=== PATIENT | male | born 1970 | race Caucasian/White ===

== ENCOUNTER 2022-09-28 10:04 | Observation (INO) | payer OTHER, SELFPAY ==
[2022-09-28 10:05] VITALS: BP 133/100; PULSE 119; RESP 16; TEMP 36.4; O2SAT 100; BMI 40.7
--- NOTE | 2022-09-28 10:17 | EDS_ITS ---
HPI HPI - GI History of Present Illness Chief Complaint: Abd Pain Detail of Chief Complaint: Abdominal pain Informant: patient Narrative Narrative: Patient presents to the emergency department complaint of abdominal pain x4 days. Patient states the pain is right upper quadrant. It does not radiate. He had decreased appetite but food does not seem to make it worse. He has had low-grade fevers at home up to 99 5. Patient was seen in urgent care today and referred to the emergency department for concern for cholecystitis. Patient has had no prior abdominal surgeries. He denies urinary symptoms. PFSH PFSH Medical History no medical history Home Medications NK 09/28/22 [History Last Taken Unknown] Allergy/AdvReac Type Severity Reaction Status Date / Time No Known Allergies Allergy Verified 09/28/22 10:06 Surgical History no surgical history Social History Smoking Status: Never smoker ROS ROS ED Review of Systems ROS Unobtainable: other Constitutional Constitutional ED: Reports lethargy; Denies chills, fever(s), sweats or weight loss Eyes Eyes: Denies blurry vision, change in vision or diplopia ENT ENT ED: Denies rhinorrhea or sore throat Cardiovascular Cardiovascular: Denies chest pain, orthopnea or racing heartbeat Respiratory/Chest Respiratory/Chest: Denies cough, dyspnea, dyspnea on exertion, orthopnea or sputum Gastrointestinal Gastrointestinal: Reports abdominal pain; Denies diarrhea, nausea or vomiting Genitourinary Genitourinary ED: Denies dysuria, hematuria or urinary frequency Musculoskeletal Musculoskeletal: Denies arthralgias, back pain, myalgias or neck pain Integumentary Denies abscess, Abrasions or rash Neurologic Neurologic: Denies headache(s) or weakness Psychiatric Psychiatric: Denies anxiety, depression or suicidal thoughts Endocrine Endocrinology: Denies polydipsia, polyphagia or polyuria Hematologic/Lymphatic Hematologic/Lymphatic: Denies easy bleeding, easy bruising or lymphadenopathy Allergic/Immunologic Allergic/Immunologic ED: Denies mouth swelling, tongue swelling or urticaria EXAM Physical Exam Const Vital Signs: 09/28/22 10:05 Temperature 97.6 F L Temperature Source Temporal Pulse Rate 119 H Respiratory Rate 16 Blood Pressure 133/100 H Blood Pressure Mean 111 Pulse Ox 100 Oxygen Delivery Method Room Air Positive well nourished and well developed General Appearance ED: well developed and NAD HEENT Reports TM's clear and moist mucous membranes normocephalic and atraumatic; Negative for trauma or tenderness Tympanic Membrane ED: Yes TM's clear Eyes PERRL and EOMs intact bilaterally General Eye ED: Negative for pale conjunctiva or scleral icterus Neck no lymphadenopathy, supple and no JVD General: Negative for tenderness Chest Wall inspection of chest normal and palpation of chest normal Chest: Negative for tenderness Resp normal respiratory effort and clear to auscultation bilaterally Effort and Inspection: Negative for respiratory distress or pain with movement Auscultation: Negative for rhonchi, wheezes or diminished lung sounds Cardio regular rate, regular rhythm, S1 normal heart sound, S2 normal heart sound and no murmurs Peripheral Pulses: pulses 2+ throughout GI normal to inspection, nondistended, normoactive bowel sounds, soft to palpation, non-distended and no masses GI Narrative: Tenderness to palpation over the right upper quadrant with some guarding. There is no rigidity. No masses palpated. He does have a positive Campa sign. Back/Spine no CVA tenderness and no thoracic nor lumbar tenderness Extremity normal to inspection General Extremety ED: Negative for edema General Extremity: Negative for edema Neuro oriented x3, CN's II-XII intact bilaterally, no sensory deficits noted and gait normal Sensorium / Orientation: awake, alert, oriented to person, oriented to place and oriented to time Motor Exam: strength 5/5 throughout and strength abnormal Psych mental status grossly normal Skin no rashes or lesions noted and no wounds MDM MDM MDM Narrative Medical decision making narrative: Patient presents with right upper quadrant pain x4 days concerning for cho lecystitis based on his history and exam. IV line established on arrival. He did not want anything for pain. CBC with differential obtained showed an elevated white count of 16.7 with a hemoglobin of 19 and hematocrit of 60. Chemistries unremarkable. BUN was 24 creatinine 1.66. LFTs showed an elevated bilirubin of 1.5 however AST ALT and alk phos were normal. Urinalysis was positive for nitrites as well as 10-25 RBCs and urobilinogen of 8. Lactate normal at 1.0. Gallbladder ultrasound obtained showed distended gallbladder with gallstones as well as thickened wall and pericholecystic fluid consistent with acute cholecystitis. Patient started on Zosyn 4.5 g IV. Case will be discussed with general surgeon on-call to evaluate for surgical intervention. Lab Data Attestation: I reviewed the patient's lab results. Labs: Laboratory Results - last 24 hr 09/28/22 09/28/22 09/28/22 10:20 10:30 10:30 WBC 16.7 H RBC 6.81 H Hgb 19.2 H* Hct 60.3 H MCV 88.5 MCH 28.2 MCHC 31.8 L RDW Std Deviation 43.0 RDW Coeff of Evert 14.0 Plt Count 289 MPV 10.1 Immature Gran % (Auto) 0.700 Neut % (Auto) 79.3 H Lymph % (Auto) 8.5 L Arthur % (Auto) 9.0 Eos % (Auto) 2.0 Baso % (Auto) 0.5 Absolute Neuts (auto) 13.3 H Absolute Lymphs (auto) 1.43 Nucleated RBC % 0 Differential Comment SCANNED Diff Path Review May foll Sodium 135 L Potassium 3.6 Chloride 103 Carbon Dioxide 28.0 Anion Gap 4 L BUN 24 H Creatinine 1.66 H Estim Creat Clear Calc 71.55 Est GFR (MDRD) Af Amer 56 L Est GFR (MDRD) Non-Af 46 L BUN/Creatinine Ratio 14.5 Glucose 99 Lactic Acid Calcium 9.0 Total Bilirubin 1.50 H AST 36 ALT 53 Alkaline Phosphatase 89 Total Protein 7.9 Albumin 3.1 L Globulin 4.8 H Albumin/Globulin Ratio 0.6 L Urine Color Nella Urine Clarity Sl. Cloudy Urine pH 6.0 Ur Specific [place] 1.010 Urine Protein 30 H Urine Glucose (UA) Normal Urine Ketones 15 H Urine Occult Blood 150 H Urine Nitrite Positive H Urine Bilirubin 1 H Urine Urobilinogen 8 H Ur Leukocyte Esterase 25 H Urine RBC 10-25 SEEN Urine WBC 0-5 SEEN Ur Squamous Epith Cells 0 SEEN Urine Bacteria 1+ Urine Mucus 1+ 09/28/22 10:30 WBC RBC Hgb Hct MCV MCH MCHC RDW Std Deviation RDW Coeff of Evert Plt Count MPV Immature Gran % (Auto) Neut % (Auto) Lymph % (Auto) Arthur % (Auto) Eos % (Auto) Baso % (Auto) Absolute Neuts (auto) Absolute Lymphs (auto) Nucleated RBC % Differential Comment Diff Path Review Sodium Potassium Chloride Carbon Dioxide Anion Gap BUN Creatinine Estim Creat Clear Calc Est GFR (MDRD) Af Amer Est GFR (MDRD) Non-Af BUN/Creatinine Ratio Glucose Lactic Acid 1.0 Calcium Total Bilirubin AST ALT Alkaline Phosphatase Total Protein Albumin Globulin Albumin/Globulin Ratio Urine Color Urine Clarity Urine pH Ur Specific [place] Urine Protein Urine Glucose (UA) Urine Ketones Urine Occult Blood Urine Nitrite Urine Bilirubin Urine Urobilinogen Ur Leukocyte Esterase Urine RBC Urine WBC Ur Squamous Epith Cells Urine Bacteria Urine Mucus Radiography Diagnostic Testing: Clinical Impression(s) from Imaging Studies Gallbladder Ultrasound 09/28/22 10:37 IMPRESSION: Distended gallbladder with wall thickening, pericholecystic fluid, gallstones, and positive Campa''s sign consistent with acute cholecystitis. There is borderline CBD dilatation as well. Surgical consultation recommended Hepatomegaly diffuse fatty infiltration, no discrete lesion Electronically Signed: Eb Gomez MD at 11:33 EDT , Discharge Plan Triage Chief Complaint: Abd Pain ED Provider: Narda Escobar Dx/Rx/DC Orders Clinical Impression: Acute cholecystitis, Leukocytosis, Abdominal pain Prescriptions: No Action NK Primary Care Provider: Care Physician,No Primary Referrals: Care Physician,No Primary [Primary Care Provider] - Disposition Disposition: Acute Care [facility]
[2022-09-28] MEDS: 0.9% Normal Saline 1,000 ML 125 ML IV (10:35)
--- NOTE | 2022-09-28 10:37 | US_ITS ---
STUDY: ABDOMINAL ULTRASOUND - RIGHT UPPER QUADRANT REASON FOR VISIT: Male, 52 years old abdominal pain TECHNIQUE: Ultrasound evaluation of the right upper quadrant was performed with real-time and static faria-scale imaging. TECHNICAL QUALITY: Limited. Examination limited by bowel gas. COMPARISON: None. FINDINGS: Liver: The liver measures 24.3 cm. There is increased echogenicity consistent with fatty infiltration. The bile ducts are within normal limits. There is hepatic color flow. The direction of portal flow is hepatopetal. There is no demonstrated mass lesion. Gallbladder: Distended gallbladder. The gallbladder wall measures 7 mm. There is a positive sonographic Campa''s sign. There is pericholecystic fluid. There are multiple echogenic structures within the gallbladder, consistent with multiple gallstones. Common Bile Duct (C.B.D.): The common bile duct measures 6 mm. Pancreas: There is nonvisualization of the pancreas. Right Kidney: Normal size of the right kidney. The right kidney measures 13.6 x 6.7 x 6.5 cm. Normal renal cortex. The right cortex measures 2.0 cm. There is no demonstrated renal mass or cyst. There is no right hydronephrosis. US/Gallbladder IMPRESSION: Distended gallbladder with wall thickening, pericholecystic fluid, gallstones, and positive Campa''s sign consistent with acute cholecystitis. There is borderline CBD dilatation as well. Surgical consultation recommended Hepatomegaly diffuse fatty infiltration, no discrete lesion Electronically Signed: Eb Gomez MD at 11:33 EDT ,
[2022-09-28 10:39] LABS: Squamous Epithelial Cells - UA 0 SEEN /hpf (0-5)
[2022-09-28 10:43] LABS: Color, Urine Amber (Yellow); Glucose, Dipstick Normal (Normal); Ketone-Dipstick 15 mg/dl (Negative); Leukocyte Esterase-Dipstick 25 /ul (Negative); Nitrite-Dipstick Positive (Negative); Occult Blood-Urine 150 /ul (Negative); Protein-Dipstick 30 mg/dl (Negative); Urine Clarity Sl. Cloudy (Clear); Urine Urobilinogen 8 mg/dl (Normal)
[2022-09-28 10:44] LABS: Urine Bilirubin Dipstick 1 mg/dL (Negative)
[2022-09-28 10:45] LABS: Absolute Lymphocyte Count 1.43 X10^3/uL (0.83-4.51); Absolute Neutrophil Count 13.3 X10^3/uL (2.0-7.7); Basophil# 0.08 X10^3/uL; Basophil% 0.5 % (0-1); Eosinophil# 0.34 X10^3/uL; Lymphocyte # 1.43 X10^3/ul (0.83-4.51); Lymphocyte % 8.5 % (19-41); Mean Corp Hgb Conc 31.8 g/dL (32-36); Mean Corpuscular Hgb 28.2 pg (27.0-32.0); Mean Corpuscular Volume 88.5 fL (80-94); Mean Platelet Vol. 10.1 fl (6.2-12.0); Monocyte# 1.51 X10^3/uL; NRBC Flagged by Analyzer 0 % (0-5); Neutrophil # 13.26 X10^3/uL (2.7-7.7); Neutrophil % 79.3 % (47-70); POSITIVE DIFFERENTIAL YES; Platelet Count 289 K/mm3 (150-450); Red Blood Count 6.81 M/mm3 (4.6-6.2); White Blood Count 16.7 K/mm3 (4.4-11.0)
[2022-09-28 10:46] LABS: Hematocrit 60.3 % (40-54)
[2022-09-28 10:47] LABS: Hemoglobin 19.2 g/dL (13.0-16.5)
[2022-09-28 10:48] LABS: Differential Indicated SCAN CRITERIA MET
[2022-09-28 10:59] LABS: Red Blood Cells-Urine 10-25 SEEN /hpf (0-5); White Blood Cells 0-5 SEEN /hpf (0-5)
[2022-09-28 11:00] LABS: Bacteria 1+ /hpf (None Seen); Mucous, Urine 1+ /hpf (<or=2+)
[2022-09-28 11:21] LABS: ALB/GLOB Ratio 0.6 RATIO (0.9-2.4); AST(SGOT) 36 U/L (15-37); Alanine Aminotransfer ALT/SGPT 53 U/L (16-61); Albumin, Serum 3.1 g/dL (3.2-5.0); Alkaline Phosphatase 89 U/L (45-117); Anion Gap 4 (5-15); BUN 24 mg/dL (7-18); BUN/Creat Ratio 14.5 RATIO (10-20); Chloride 103 mmol/L (98-107); Creatinine, Serum 1.66 mg/dL (0.70-1.30); EST Glomerular Filtration Rate 46 mL/min (>60); Est Glom Filt Rate - Afr Amer 56 mL/min (>60); Estimated Creatinine Clearance 71.55 ml/min; Globulin 4.8 g/dL (2.2-4.2); Glucose 99 mg/dL (74-106); Potassium 3.6 mmol/L (3.5-5.1); Protein, Total 7.9 g/dL (6.4-8.2); Sodium Level 135 mmol/L (136-145)
[2022-09-28 11:25] LABS: Differential Comment SCANNED
--- NOTE | 2022-09-28 11:49 | HP.PCM.SX_ITS ---
HPI - General General Date of Admission: 09/28/22 HPI Narrative SAMMY BOATENG, is a 52 M who presents due to right upper quadrant pain which started on Tuesday which was a 10 out of 10 for several hours. Did get little better but both still pretty intense on Tuesday and yesterday got better but last night began to get worse again. Patient has not eaten much only 2 bowls of cereal in homemade chicken noodle soup. Patient admits to fevers on Tuesday and Tuesday which did improve yesterday. Patient had 2 prior episodes similarly but not as intense. Patient denies any nausea or vomiting. Patient denies any diarrhea. Patient white blood count 16.7. Ultrasound the gallbladder shows cholelithiasis, thickened gallbladder wall and pericholecystic fluid. [facility] Medical History no medical history Home Medications NK 09/28/22 [History Last Taken Unknown] Allergy/AdvReac Type Severity Reaction Status Date / Time No Known Allergies Allergy Verified 09/28/22 10:06 Surgical History no surgical history Social History Smoking Status: Never smoker ROS Constitutional Constitutional: Reports anorexia and fever(s) Eyes Eyes: Denies loss of central vision ENT HEENT: Denies dysphagia Cardiovascular Cardiovascular: Denies chest pain Respiratory/Chest Respiratory/Chest: Denies cough Gastrointestinal Gastrointestinal: Reports abdominal pain; Denies diarrhea, nausea or vomiting Genitourinary Genitourinary: Denies dysuria Musculoskeletal Musculoskeletal: Denies joint swelling Integumentary Integumentary: Denies rash Neurologic Neurologic: Denies focal weakness Psychiatric Psychiatric: Denies anxiety or depression Endocrine Endocrinology: Denies palpitations Hematologic/Lymphatic Hematologic/Lymphatic: Denies easy bleeding Vital Signs Vital Signs Vital Signs: 09/28/22 10:05 Temperature 97.6 F L Temperature Source Temporal Pulse Rate 119 H Respiratory Rate 16 Blood Pressure 133/100 H Blood Pressure Mean 111 Pulse Ox 100 Oxygen Delivery Method Room Air Weight Weight: 380 lb Body Mass Index (BMI) 40.7 Physical Exam Const alert, oriented x3 and no apparent distress HEENT normocephalic and head/scalp atraumatic Resp normal respiratory effort Cardio regular rate GI soft to palpation; Negative for non-distended Palpation: tender epigastric and RUQ; Negative for guarding Extremity no clubbing, cyanosis or edema Neuro CN's II-XII intact bilaterally Psych mental status grossly normal Results Lab / Micro Data Result Diagrams: 09/28/22 10:30 09/28/22 10:30 Labs: Laboratory Results - last 24 hr 09/28/22 10:20: Urine Color Nella, Urine Clarity Sl. Cloudy, Urine pH 6.0, Ur Specific [place] 1.010, Urine Protein 30 H, Urine Glucose (UA) Normal, Urine Ketones 15 H, Urine Occult Blood 150 H, Urine Nitrite Positive H, Urine Bilirubin 1 H, Urine Urobilinogen 8 H, Ur Leukocyte Esterase 25 H, Urine RBC 10- 25 SEEN, Urine WBC 0-5 SEEN, Ur Squamous Epith Cells 0 SEEN, Urine Bacteria 1+, Urine Mucus 1+ 09/28/22 10:30: WBC 16.7 H, RBC 6.81 H, Hgb 19.2 H*, Hct 60.3 H, MCV 88.5, MCH 28.2, MCHC 31.8 L, RDW Std Deviation 43.0, RDW Coeff of Evert 14.0, Plt Count 289, MPV 10.1, Immature Gran % (Auto) 0.700, Neut % (Auto) 79.3 H, Lymph % (Auto) 8.5 L, [place] % (Auto) 9.0, Eos % (Auto) 2.0, Baso % (Auto) 0.5, Absolute Neuts (auto) 13.3 H, Absolute Lymphs (auto) 1.43, Nucleated RBC % 0, Differential Comment SCANNED, Diff Path Review October foll 09/28/22 10:30: Sodium 135 L, Potassium 3.6, Chloride 103, Carbon Dioxide 28.0, Anion Gap 4 L, BUN 24 H, Creatinine 1.66 H, Estim Creat Clear Calc 71.55, Est GFR (MDRD) Af Amer 56 L, Est GFR (MDRD) Non-Af 46 L, BUN/Creatinine Ratio 14.5, Glucose 99, Calcium 9.0, Total Bilirubin 1.50 H, AST 36, ALT 53, Alkaline Phosphatase 89, Total Protein 7.9, Albumin 3.1 L, Globulin 4.8 H, Albumin/Globulin Ratio 0.6 L 09/28/22 10:30: Lactic Acid 1.0 Radiology Impression Gallbladder Ultrasound 09/28/22 10:37 IMPRESSION: Distended gallbladder with wall thickening, pericholecystic fluid, gallstones, and positive Campa''s sign consistent with acute cholecystitis. There is borderline CBD dilatation as well. Surgical consultation recommended Hepatomegaly diffuse fatty infiltration, no discrete lesion Electronically Signed: Eb Gomez MD at 11:33 EDT , Assessment & Plan Assessment/Plan (1) Acute cholecystitis: PLAN: Plan Did review ultrasound personally. Patient's pain did seem to start several hours after eating which is not typical we will also place patient on a PPI IV. Reviewed the anatomy with the patient and discussed the procedure: laparoscopic cholecystectomy with cholangiograms, possible open. Review risks including but not limited to bleeding, infection, hernia, bile leak, retained gallstones requiring another procedure ERCP- Endoscopic Retrograde Cholangiopancr eatography, injury to another organ (bile ducts, common bile duct, small bowel, etc.) and conversion to an open procedure, possible subtotal with drain placement. All questions were answered. Santa Rose M.D. Pager: [phone] [facility] [address] [place] [address], [address] [place] [address] Office: [phone]
[2022-09-28 12:03] VITALS: BP 139/76; PULSE 78; RESP 16; TEMP 36.4; O2SAT 97
[2022-09-28 12:26] VITALS: BMI 39.6
[2022-09-28 12:30] VITALS: BP 156/107; PULSE 95; RESP 18; TEMP 36.8; O2SAT 98
[2022-09-28] MEDS: 0.9% Normal Saline 1,000 ML 130 ML IV ×3 (12:47→21:33)
[2022-09-28] MEDS: oxyCODONE 5 MG Tablet PO ×2 (12:53→21:34)
[2022-09-28] MEDS: Acetaminophen 325 MG Tablet 650 MG PO ×2 (12:53→21:34)
[2022-09-28 15:30] VITALS: BP 124/85; PULSE 89; RESP 18; TEMP 36.9; O2SAT 96
[2022-09-28 21:22] VITALS: BP 131/84; PULSE 94; RESP 24; TEMP 36.8; O2SAT 94
[2022-09-29] VITALS (10 sets, daily range): BP systolic 126–159; BP diastolic 75–86; PULSE 71–99; RESP 16–20; TEMP 36.2–37; O2SAT 92–100; BMI 39.6
[2022-09-29] MEDS: 0.9% Normal Saline 1,000 ML 130 ML IV (05:19)
[2022-09-29 06:51] LABS: Basophil# 0.07 X10^3/uL; Basophil% 0.8 % (0-1); Eosinophil# 0.42 X10^3/uL; Eosinophils% 4.6 % (0-5); Hematocrit 53.5 % (40-54); Hemoglobin 16.4 g/dL (13.0-16.5); Lymphocyte % 18.7 % (19-41); Mean Corp Hgb Conc 30.7 g/dL (32-36); Mean Corpuscular Hgb 27.3 pg (27.0-32.0); Mean Platelet Vol. 10.2 fl (6.2-12.0); Monocyte# 0.89 X10^3/uL; Monocyte% 9.8 % (0-10); NRBC Flagged by Analyzer 0 % (0-5); Neutrophil # 5.96 X10^3/uL (2.7-7.7); Neutrophil % 65.3 % (47-70); Platelet Count 244 K/mm3 (150-450); RBC Distribution Width CV 13.1 % (11.6-14.6); RBC Distribution Width SD 43.1 fl (35.1-43.9); Red Blood Count 6.01 M/mm3 (4.6-6.2); White Blood Count 9.1 K/mm3 (4.4-11.0)
--- NOTE | 2022-09-29 07:17 | PCM.PN.SRG ---
Subjective Subjective Patient states pains about the same. Denies any nausea or vomiting Objective Data Objective Data Vital Signs: Vital Signs Temp Pulse Resp BP Pulse Ox O2 Del Method 97.3 F L 71 20 H 126/75 H 92 Room Air 09/29/22 05:13 09/29/22 05:13 09/29/22 05:13 09/29/22 05:13 09/29/22 05:13 09/29/22 06:04 Oxygen Delivery Method Room Air Weight: 369 lb 12.784 oz Body Mass Index (BMI) 39.6 Intake & Output: Intake and Output for Last 24 Hours 09/27/22 09/28/22 09/29/22 23:59 23:59 23:59 Intake Total 2850.83 / 2850.83 1092.75 / 1092.75 Balance 2850.83 / 2850.83 1092.75 / 1092.75 Lab / Micro Data Result Diagrams: 09/29/22 05:55 09/29/22 05:55 Labs: Laboratory Results - last 24 hr 09/28/22 10:20: Urine Color Nella, Urine Clarity Sl. Cloudy, Urine pH 6.0, Ur Specific [place] 1.010, Urine Protein 30 H, Urine Glucose (UA) Normal, Urine Ketones 15 H, Urine Occult Blood 150 H, Urine Nitrite Positive H, Urine Bilirubin 1 H, Urine Urobilinogen 8 H, Ur Leukocyte Esterase 25 H, Urine RBC 10-25 SEEN, Urine WBC 0-5 SEEN, Ur Squamous Epith Cells 0 SEEN, Urine Bacteria 1+, Urine Mucus 1+ 09/28/22 10:30: WBC 16.7 H, RBC 6.81 H, Hgb 19.2 H*, Hct 60.3 H, MCV 88.5, MCH 28.2, MCHC 31.8 L, RDW Std Deviation 43.0, RDW Coeff of Evert 14.0, Plt Count 289, MPV 10.1, Immature Gran % (Auto) 0.700, Neut % (Auto) 79.3 H, Lymph % (Auto) 8.5 L, [place] % (Auto) 9.0, Eos % (Auto) 2.0, Baso % (Auto) 0.5, Absolute Neuts (auto) 13.3 H, Absolute Lymphs (auto) 1.43, Nucleated RBC % 0, Differential Comment SCANNED, Diff Path Review May foll 09/28/22 10:30: Sodium 135 L, Potassium 3.6, Chloride 103, Carbon Dioxide 28.0, Anion Gap 4 L, BUN 24 H, Creatinine 1.66 H, Estim Creat Clear Calc 71.55, Est GFR (MDRD) Af Amer 56 L, Est GFR (MDRD) Non-Af 46 L, BUN/Creatinine Ratio 14.5, Glucose 99, Calcium 9.0, Total Bilirubin 1.50 H, AST 36, ALT 53, Alkaline Phosphatase 89, Total Protein 7.9, Albumin 3.1 L, Globulin 4.8 H, Albumin/Globulin Ratio 0.6 L 09/28/22 10:30: Lactic Acid 1.0 09/29/22 05:55: WBC 9.1, RBC 6.01, Hgb 16.4, Hct 53.5, MCV 89.0, MCH 27.3, MCHC 30.7 L, RDW Std Deviation 43.1, RDW Coeff of Evert 13.1, Plt Count 244, MPV 10.2, Immature Gran % (Auto) 0.800, Neut % (Auto) 65.3, Lymph % (Auto) 18.7 L, [place] % (Auto) 9.8, Eos % (Auto) 4.6, Baso % (Auto) 0.8, Absolute Neuts (auto) 6.0, Absolute Lymphs (auto) 1.70, Nucleated RBC % 0 Radiography Diagnostic Testing: Radiology Impression Gallbladder Ultrasound 09/28/22 10:37 IMPRESSION: Distended gallbladder with wall thickening, pericholecystic fluid, gallstones, and positive Campa''s sign consistent with acute cholecystitis. There is borderline CBD dilatation as well. Surgical consultation recommended Hepatomegaly diffuse fatty infiltration, no discrete lesion Electronically Signed: Eb Gomez MD at 11:33 EDT , Physical Exam Const oriented x3 and no apparent distress Resp normal respiratory effort Cardio regular rate GI soft to palpation Palpation: tender epigastric and RUQ Assessment & Plan Assessment/Plan (1) Acute cholecystitis: PLAN: Plan Lap aleks this afternoon Continue IV Zosyn Continue pain control Santa Rose M.D. Pager: [phone] [facility] [address] [place] [address], [address] [place] [address] Office: [phone]
[2022-09-29 07:23] LABS: AST(SGOT) 43 U/L (15-37); Alanine Aminotransfer ALT/SGPT 61 U/L (16-61); Albumin, Serum 2.5 g/dL (3.2-5.0); Alkaline Phosphatase 81 U/L (45-117); Anion Gap 3 (5-15); BUN 15 mg/dL (7-18); BUN/Creat Ratio 11.7 RATIO (10-20); Bilirubin, Direct 0.51 mg/dL (0.00-0.30); Calcium,Total 7.7 mg/dL (8.5-10.1); Chloride 105 mmol/L (98-107); Creatinine, Serum 1.28 mg/dL (0.70-1.30); EST Glomerular Filtration Rate 63 mL/min (>60); Est Glom Filt Rate - Afr Amer 76 mL/min (>60); Globulin 3.5 g/dL (2.2-4.2); Glucose 82 mg/dL (74-106); Potassium 3.5 mmol/L (3.5-5.1); Sodium Level 135 mmol/L (136-145)
--- NOTE | 2022-09-29 13:22 | NURSING ---
Pt off floor for surgery
[2022-09-29] MEDS: Bupivacaine 0.25% 30 ML Vial (14:35)
--- NOTE | 2022-09-29 15:00 | GALL_PTH ---
PATIENT: SAMMY BOATENG LOC: MS3 U#:[id number] AGE/SX: 52/M [place] [facility] [place]: Dr. Santa Rose MD : 1970 BED: 1 DIS: 09/29/2022 SPEC #: [id number] RECD: 09/30/22 10:14 STATUS: DAJUAN REStephanie #: [id number] ARTURO: 09/29/22 15:[address]: Santa Rose DEPT: SURGICAL PATHOLOGY RECD BY: Leeanna Benoit ENTERED: 09/30/22 11:43 SP TYPE: ODILON MCFADDEN DR: No Primary Care Phys Tissues: Gallbladder, NOS Procedures: Surgery Specimen Level III HEADER OPERATION: Laparoscopic cholecystectomy with IOC PRE-OP DIAGNOSIS: Acute cholecystitis TISSUE SUBMITTED: Gallbladder MICROSCOPIC DIAGNOSIS Gallbladder, cholecystectomy: Acute and chronic ulcerated and hemorrhagic cholecystitis, cholelithiasis and focal cholesterolosis. SJ:abigail 10/01/2022 MICROSCOPIC DESCRIPTION Slides are reviewed. GROSS DESCRIPTION Received is one container labeled with the patient's name and designated gallbladder. The specimen consists of a gallbladder measuring 11.0 cm in length and up to 5.5 cm in diameter. The gallbladder is previously opened. The external surface is pink-nam, smooth and glistening for the most part. Focally it is granular, hemorrhagic and contains cautery artifact. The mucosa is congested and hemorrhagic. No bile is noted. Present in the gallbladder and also in the container are multiple mulberry ovoid to round stones measuring in aggregate 4.0 x 3.0 x 2.0 cm and 0.3 to 2.0 cm in greatest dimension. The mucosa is ulcerated, congested and hemorrhagic. Increased amount of subserosal fat is noted. The gallbladder wall measures up to 1.0 cm in thickness. Sewing Department Supervisor sections from the gallbladder and the cystic duct are submitted in three cassettes. / MATT:abigail 09/30/2022 TC:2 CPT: 56030
[2022-09-29] MEDS: Lactated Ringers 1,000 ML 15 ML IV (16:00)
--- NOTE | 2022-09-29 16:50 | PCM.OPRPT ---
Report of Operation Date of Procedure: 09/29/22 Pre-Operative Diagnosis: Acute cholecystitis Post-Operative Diagnosis: Same Surgery/Procedure Performed:: Laparoscopic cholecystectomy Surgeon: Santa Rose labor arbitrator hearing office: [facility] [place] Type of Anesthesia: General/Supplemental Anesthesiologist: Alexandru Nicole Special Medications: Zosyn 3.375 g IV every 8 hours for acute cholecystitis on the floor Specimen's removed: Gallbladder and stones Estimated Blood Loss (mL): 30 cc Description of Procedure: Indications: this is a 52 year-old male who developed abdominal pain/nausea/vomiting and on workup was found to have cholelithiasis, with a normal common bile duct. Laparoscopic cholecystectomy was elected. Description procedure: The patient was placed on operating table in supine position. A timeout was completed verifying correct patient, procedure, site, position and special equipment prior to beginning procedure. General Anesthesia was induced. The abdomen was prepped and draped in usual sterile fashion. An incision was made in the natural skin line above the umbilicus. The fascia was elevated and incised. The peritoneum was elevated and incised. Entry into the peritoneum was confirmed visually and no bowel was noted in the vicinity of the incision. Persaud trocar was placed. The abdomen was insufflated with carbon dioxide to a pressure of 12-15 mmHg. Patient tolerated insufflation well. The laparoscope was then inserted and abdomen inspected. No injuries from initial trocar placement were noted. Additional trochars were then inserted in the following locations 5 mm trocar in the epigastrium and 2 more 5 mm trochars along the right costal margin. The abdomen was inspected no abnormalities were found. The table is placed in reverse Trendelenburg position with the right side up. Inflamed omentum was pulled off the gallbladder with gentle traction gallbladder was noted to be tense and inflamed, thick-walled. Aspiration needle was used to decompress the gallbladder. The dome of the gallbladder was grasped with atraumatic grasper passed through the lateral port and retracted over the dome of the liver. Infundibulum was then grasped with atraumatic grasper through the midclavicular port and retracted to the right lower quadrant. This maneuver exposed Calot's triangle. The peritoneum overlying the gallbladder infundibulum was then incised and cystic duct and artery identified and circumferentially dissected. Due to the short cystic duct and thick wall cholangiograms were not attempted. The cystic duct and artery were then doubly clipped and divided close to the gallbladder. The gallbladder then dissected from its peritoneal attachments by electrocautery. Hemostasis was checked and the gallbladder and contained stones were removed using the endoscopic retrieval bag through the umbilical port which required enlargement due to stones/thick-walled gallbladder. The gallbladder is passed off table as specimen. The gallbladder fossa was irrigated with saline and hemostasis obtained using [place]. There is no evidence of bleeding from the gallbladder fossa or cystic artery leakage of bile from the cystic duct stump. Secondary trochars removed under direct vision. No bleeding was noted the trocar sites. The laparoscope was withdrawn and umbilical trocar removed. The abdomen was allowed to collapse. The fascia of the 12 mm trocar was closed with 3 [id number] 0 Vicryl suture. The skin was closed with sutures of 4-0 Monocryl and Steri-Strips. The patient was extubated. The patient tolerated procedure well and was taken to the postanesthesia care unit in stable condition. Complications none
--- NOTE | 2022-09-29 16:54 | DCINST_ITS ---
Discharge Instructions Diet Discharge Diet: Light diet - advance as tolerated Activity Discharge Activity: May Not Drive (while taking narcotic pain medications.) May shower in (days): 1 Lifting Restrictions: no lifting >20 lbs x 2 wks, no strenuous exercise for 4 wks Dressing / Incision Call your doctor if your incision/area has: Continuous Slow Oozing, Sudden Increased Bleeding, Increased Pain/ Swelling, Increased Redness, Foul Smelling Discharge and Swelling at the incision site Call your doctor if you observe: Fever of 101 or Higher Remove Dressing in: 2 days Cleanse incision/area with: Soap & Water Additional Dressing/Incision Instructions:: Steri-Strips will fall off in 7 to 10 days, if they do not fall off okay to remove after 10 days. Follow Up Care Please Follow Up With: Santa Rose MD When: Call the office for a follow-up appointment 2 weeks; after 5 PM and on the weekends call [phone] with any concerns. Test Results: Test results from this visit will be discussed in further detail at your follow- up appointment, if applicable. Discharge Plan Admission Admit Date/Time: 09/28/22 12:17 Attending Provider: Santa Rose Primary Care Provider: Care Physician,Yenni Primary Discharge Orders/Prescriptions Prescriptions: New oxycodone-acetaminophen 5-325 mg tablet 1 - 2 tab PO Q6H PRN (Reason: pain) 3 Days Qty: 14 0RF amoxicillin-pot clavulanate 875-125 mg tablet 1 tab PO Q12H Qty: 4 0RF Referrals / Follow Up: Care Physician,Yenni Primary [Primary Care Provider] - Disposition Disposition (needs filled in before D/C Order can be placed): Home, Self Care
--- NOTE | 2022-09-29 21:35 | NURSING ---
talked with pt about not exercising for 6 weeks after surgery.
[2022-09-30 13:19] LABS: Pathologist Review Reviewed
== END 2022-09-29 21:38 | disposition home or self-care (01) ==
LOC: ED 11:41 → MS3 12:25
PROVIDERS: Admitting Provider Surgery; Emergency Provider Emergency Medicine; Visit Provider Surgery
PROC: (CPT 47610; principal; 2022-09-29 14:40)
DX: K80.12 Calculus of gallbladder with acute and chronic cholecystitis without obstruction (principal)
CPT/HCPCS: 47562; 00790; 99284; 36415; 76705; 80048; 80053; 80076; 81001; 83605; 85025; 87086; 88304; 93005; 94668; 96361; 96365; 96366; 96367; 97802; 99221; J7030; J7050; J7120; A4216; G0378

== ENCOUNTER 2023-01-13 10:47 | Day surgery (SDC) | payer OTHER, SELFPAY ==
--- NOTE | 2023-01-13 11:03 | PCM.HP.BLA ---
History and Physical Date of Admission: 01/13/23 Date of Service: 12/31/22 MR#: [id number] Acct: [id number] Name: SAMMY BOATENG Rep #: [id number] : 1970 Provider: Dr. Santa Rose MD Age/Sex: 52/M Location: [facility] Status: Signed Intake Vital Signs 09/30/2307:00 Height 6 ft 9 in Intake Visit Reasons: HERNIA SURGERY F/U Chief Complaint: gallbladder f/u Allergies No Known Allergies Allergy (Verified 12/31/22 10:14) [facility] Surgical History (Updated 12/31/22 @ 10:[address] Santa Rose MD) H/O discectomy History of orthopedic surgery S/P laparoscopic cholecystectomy Social History Smoking Status: Never smoker HPI HPI HPI: 52-year-old male presents due to umbilical hernia. Patient did have a recent laparoscopic cholecystectomy in September 2022. Patient states that on Tuesday noticed some nausea and discomfort at his umbilicus patient did feel some squishy material and was able to reduce it and his discomfort and nausea improved. Patient otherwise tolerating diet and having bowel function. Exam Const General: cooperative, healthy appearing, comfortable and no acute distress HENMT Head: normocephalic and atraumatic Neck Neck: supple Resp Effort & Inspection: normal respiratory effort Cardio Rate: regular rate GI Inspection: non-distended Palpation: soft, hernia umbilical (About 1 cm reducible) and nontender Other: Patient supraumbilical incision well-healed no hernia appreciated on exam at this site Skin General: no rashes or lesions noted Neuro General: CN's II-XI intact bilaterally Extrem General: normal to inspection Psych Mental Status: mental status grossly normal Attitude: cooperative Assessment and Plan Assessment and Plan (1) Umbilical hernia: Status: Acute Plan Plan to do an umbilical hernia repair with mesh. Reviewed the procedure with the patient including the risks, including but not limited to infection, bleeding, injury to the small bowel, and recurrence. Did also discussed with patient he would be on lifting restrictions initially after surgery to help prevent recurrence. All questions were answered. Patient is aware if he does have increased pain at the umbilicus and unable to reduce recommend going to the ER?prior to surgery. Patient is agreeable plan. Santa Rose M.D. Pager: [phone] [facility] [address] [place] [address], [facility], [address] [place] [address] Office: [phone] Coding Level of Care Code Off vis,est,level 3 Diagnoses Umbilical hernia K42.9 12/31/22 1040 <Electronically signed by Santa Rose MD> Date Santa Rose MD
[2023-01-13] MEDS: Lactated Ringers 1,000 ML 15 ML IV (11:24)
[2023-01-13 11:25] VITALS: BP 156/95; PULSE 72; RESP 17; TEMP 36.9; O2SAT 99; BMI 39.9
--- NOTE | 2023-01-13 13:40 | PCM.OPRPT ---
Report of Operation Date of Procedure: 01/13/23 Pre-Operative Diagnosis: Umbilical hernia, reducible Post-Operative Diagnosis: Same Surgery/Procedure Performed:: Umbilical hernia pair with mesh Surgeon: Santa Rose mail forwarding system markup clerk: Natalie Fields Type of Anesthesia: General/Supplemental Anesthesiologist: Alexandru Nicole Special Medications: Ancef 3 g IV x1 Specimen's removed: None Estimated Blood Loss (mL): < 10 cc Description of Procedure: Patient was brought into the room placed supine on the operating table. Correct patient, procedure, site, positioning, special, was verified prior to procedure. General anesthesia was induced. The abdomen was prepped draped in usual sterile fashion. A curvilinear incision was made above the umbilicus with a 15 blade scalpel. This was deepened with electrocautery. A hemostat was used to go around the stalk of the umbilicus and Metzenbaum scissors was used to carefully divide the hernia sac from the skin of the umbilicus. The fascia around the hernia defect was cleared and the hernia defect measured 2 cm x [address] hernia patch 6.4 cm was selected. This was secured laterally at its tails with 1 Prolene horizontal mattress suture. The hernia defect was closed with a [id number] 1 Prolene. The wound was irrigated with saline. Hemostasis was assured. The skin of the umbilicus was secured to the fascia using 3-0 Vicryl suture interrupted. The incision was closed with 3-0 Vicryl subdermal interrupted sutures and the skin was closed with interrupted 4-0 Monocryl sutures. Steri-Strips and Tegaderm and OpSite were placed over the incision once sterile cotton balls were placed in the umbilicus. Patient was extubated. Patient tolerated procedure well and was taken to the postanesthesia care unit in stable condition. Grafts/Implants Used: Ventralex ST hernia patch 6.4 cm-- Lot [id number] space ref [id number] Complications none
--- NOTE | 2023-01-13 13:43 | DCINST_ITS ---
Discharge Instructions Diet Discharge Diet: Light diet - advance as tolerated Activity May shower in (days): 5 (Keep umbilical dressing clean dry and intact for 5 days. Okay to tape off with a Ziploc bag to shower. Or lower shower and upper sponge bath.) Lifting Restrictions: NO lifting >30 lbs x 2 wks, no strenuous exercise for 4 wks Additional Activity Instructions:: - Dressing / Incision Call your doctor if your incision/area has: Continuous Slow Oozing, Sudden Increased Bleeding, Increased Pain/ Swelling, Increased Redness, Foul Smelling Discharge and Swelling at the incision site Call your doctor if you observe: Fever of 101 or Higher Remove Dressing in: 5 days (After 5 days okay to remove surgical dressing. Place cotton ball or rolled up gauze in bellybutton and retape daily for 2 more days.) Cleanse incision/area with: Do not get Incision Wet (for 5 days) Additional Dressing/Incision Instructions:: Steri-Strips will fall off in 7 to 10 days, if they do not fall off okay to remove after 10 days. Follow Up Care Please Follow Up With: Santa Rose MD When: Call the office for a follow-up appointment 2 weeks; after 5 PM and on the weekends call [phone] with any concerns. Test Results: Test results from this visit will be discussed in further detail at your follow- up appointment, if applicable. Discharge Plan Admission Attending Provider: Santa Rose Primary Care Provider: Yenni Will Primary Discharge Orders/Prescriptions Prescriptions: New oxycodone-acetaminophen 5-325 mg tablet 1 - 2 tab PO Q6H PRN (Reason: pain) 3 Days Qty: 10 0RF Referrals / Follow Up: Care Physician,Yenni Primary [Primary Care Provider] - Disposition Disposition (needs filled in before D/C Order can be placed): Home, Self Care
[2023-01-13] MEDS: Bupivacaine Mpf 0.5% 30 ML VIAL (13:53)
[2023-01-13 14:08] VITALS: BP 146/95; BP 156/95; PULSE 73; RESP 16; TEMP 36.3; O2SAT 93
[2023-01-13 14:15] VITALS: BP 144/95; BP 156/95; PULSE 71; RESP 16; O2SAT 93
[2023-01-13 14:30] VITALS: BP 142/84; BP 156/95; PULSE 68; RESP 16; O2SAT 96
[2023-01-13 14:35] VITALS: BP 141/90; BP 156/95; PULSE 64; RESP 16; TEMP 36.8; O2SAT 100
[2023-01-13 15:32] VITALS: BP 156/95
== END 2023-01-13 15:34 | disposition home or self-care (01) ==
LOC: SDC 10:48 → AC 10:50
PROVIDERS: Referring Provider Surgery; Visit Provider Surgery
PROC: (CPT 49593; principal; 2023-01-13 12:10)
DX: K42.9 Umbilical hernia without obstruction or gangrene (principal)
CPT/HCPCS: 49593; 00830; C1781; J7120; J2405

== ENCOUNTER 2023-10-11 10:07 | Emergency (ER) | payer OTHER, SELFPAY ==
[2023-10-11 10:08] VITALS: BP 211/67; PULSE 89; RESP 18; TEMP 36.4; O2SAT 99; BMI 41.2
[2023-10-11 11:11] VITALS: BP 169/118; PULSE 80; RESP 14; O2SAT 100
--- NOTE | 2023-10-11 11:19 | EKG12_ITS ---
Test Reason : CHEST PAIN Blood Pressure : / mmHG Vent. Rate : 090 BPM Atrial Rate : 090 BPM P-R Int : 144 ms QRS Dur : 090 ms QT Int : 362 ms P-R-T Axes : 022 008 023 degrees QTc Int : 442 ms Normal sinus rhythm Normal ECG Confirmed by LEBRON HERNANDES, ALEJANDRA ([id number]), visual effects editor JENNY SHEA ([id number]) on 10/17/2023 1:33:53 PM Referred By: Confirmed By:TOM DIANA MD
--- NOTE | 2023-10-11 11:20 | ED.VIS.CHEST ---
HPI History of Present Illness Chief Complaint: Chest Pain Informant: patient Narrative Narrative: 53-year-old male presenting to the emergency department chief complaint of palpitations. Patient states that over the past 2-1/2 weeks he has felt his heart beating funny. He states is not all the time tends to come and go sometimes lasting seconds sometimes minutes sometimes slightly longer. He states he has felt this before during periods of anxiety like when he was taking his mother to get testing before she passed. He states that he has garcia sensations while he has been here to the department. He has some episodes while were talking and is having PVCs on the monitor. The max 15 is 11 and 1 minute. Sometimes he will go minutes without any. No chest pain involvement. No dyspnea. He lifts heavy weights 3 times a week. He notes that his mother in her 70s from complications related to surgery and CHF. His father in his 40s possibly related to lifestyle of heavy smoking and drinking. He denies any change in his ability to lift weights. [facility] Medical History History of stress test Non-smoker Wears glasses Home Medications NK 10/11/23 [History Last Taken Unknown] Allergy/AdvReac Type Severity Reaction Status Date / Time No Known Allergies Allergy Verified 10/11/23 10:08 Surgical History H/O discectomy History of back surgery History of hand surgery History of knee surgery History of neck surgery History of orthopedic surgery History of shoulder surgery S/P laparoscopic cholecystectomy Social History Smoking Status: Never smoker ROS ROS ED Constitutional Constitutional ED: Denies chills, fever(s) or weight loss Eyes Eyes: Denies change in vision or diplopia ENT ENT ED: Denies ear pain, rhinorrhea or sore throat Cardiovascular Cardiovascular: Reports as per HPI and palpitations; Denies chest pain, orthopnea or racing heartbeat Respiratory/Chest Respiratory/Chest: Denies cough, dyspnea or orthopnea Gastrointestinal Gastrointestinal: Denies abdominal pain, diarrhea, nausea or vomiting Genitourinary Genitourinary ED: Denies dysuria, hematuria or urinary frequency Musculoskeletal Musculoskeletal: Denies arthralgias or myalgias Integumentary Denies abscess or rash Neurologic Neurologic: Denies headache(s) or weakness Psychiatric Psychiatric: Denies anxiety, depression, suicidal ideation or suicidal thoughts Endocrine Endocrinology: Denies polydipsia, polyphagia or polyuria Allergic/Immunologic Allergic/Immunologic ED: Denies mouth swelling, tongue swelling or urticaria EXAM Physical Exam Const Vital Signs: 10/11/23 10:08 10/11/23 11:11 10/11/23 12:00 Temperature 97.6 F L Temperature Source Temporal Pulse Rate 89 80 80 Respiratory Rate 18 14 16 Blood Pressure 211/67 H 169/118 H 149/89 H Blood Pressure Mean 115 135 109 Pulse Ox 99 100 96 Oxygen Delivery Method Room Air Room Air Room Air 10/11/23 12:36 Temperature 98.2 F Temperature Source Pulse Rate 80 Respiratory Rate 14 Blood Pressure 152/78 H Blood Pressure Mean 102 Pulse Ox 100 Oxygen Delivery Method Positive well nourished and well developed General Appearance ED: well developed HEENT Reports normocephalic, head/scalp atraumatic and moist mucous membranes Eyes PERRL and EOMs intact bilaterally Neck no lymphadenopathy, supple and no JVD Resp normal respiratory effort and clear to auscultation bilaterally Cardio regular rate, regular rhythm and no murmurs GI normal to inspection, nondistended, normoactive bowel sounds and non-tender Palpation: soft Back/Spine no CVA tenderness and normal ROM Extremity normal to inspection General Extremety ED: Negative for edema General Extremity: Negative for edema Neuro oriented x3 and CN's II-XII intact bilaterally Sensorium / Orientation: alert Motor Exam: strength 5/5 throughout Psych mental status grossly normal Mood & Affect: Negative for depressed or tearful Skin no rashes or lesions noted and no wounds MDM MDM MDM Narrative Medical decision making narrative: EKG is a normal sinus rhythm with no significant change from prior. CBC normal. BMP shows normal sodium and potassium. Creatinine 1.33 glucose 100 magnesium 2.3 troponin 1 high-sensitivity is 8 TSH normal 2.45. My independent interpretation of the chest x-ray is normal mediastinal silhouette. Patient continues to be in a sinus rhythm with occasional bouts of PVCs. At this point patient will be discharged home. Based on the patient's history and how active he is I am not sure that we need to try to give him any beta-tarah at this time. Continue to monitor his blood pressure and he may need treatment for this as an outpatient. I will refer him to cardiology after discussing follow-up with him. History & Record Review Discussion w/independent historian: Patient Lab Data Attestation: I reviewed the patient's lab results. Labs: Laboratory Results - last 24 hr 10/11/23 10:40 WBC 7.2 RBC 5.82 Hgb 16.1 Hct 50.0 MCV 85.9 MCH 27.7 MCHC 32.2 RDW Std Deviation 39.1 RDW Coeff of Evert 12.6 Plt Count 299 MPV 10.2 Immature Gran % (Auto) 0.300 Neut % (Auto) 66.0 Lymph % (Auto) 23.8 [place] % (Auto) 7.0 Eos % (Auto) 2.2 Baso % (Auto) 0.7 Absolute Neuts (auto) 4.8 Absolute Lymphs (auto) 1.72 Nucleated RBC % 0 Sodium 139 Potassium 3.7 Chloride 109 H Carbon Dioxide 27.0 Anion Gap 3 L BUN 22 H Creatinine 1.33 H Estim Creat Clear Calc 115.70 Est GFR (MDRD) Af Amer 72 Est GFR (MDRD) Non-Af 60 BUN/Creatinine Ratio 16.5 Glucose 100 Calcium 9.1 Magnesium 2.3 Troponin I High Sens 8 TSH 2.45 Radiography Diagnostic Testing: Clinical Impression(s) from Imaging Studies Chest X-Ray 10/11/23 11:25 IMPRESSION: Normal x-ray examination of the chest. Electronically Signed: Carlos Dominguez MD at 12:11 EDT , EKG Initial EKG: Attestation: I personally reviewed and interpreted this EKG as follows: Interpretation: Sinus Rhythm Comments: Normal sinus rhythm ventricular rate of 90 bpm EKG comparison from 29 September 2022 show no significant changes. Prior EKG tracings: available for review Prior: Unchanged Discharge Plan Triage Chief Complaint: Chest Pain ED Provider: Scar Walls Dx/Rx/DC Orders Clinical Impression: Heart palpitations, Frequent PVCs Instructions: PVCs Prescriptions: No Action NK Primary Care Provider: Care Physician,No Primary Referrals: Linda Atkinson MD [Med Staff - Active Staff] - As soon as possible Care Physician,No Primary [Primary Care Provider] - Disposition Disposition: Home, Self Care Discharge Date/Time: 10/11/23 12:37
--- NOTE | 2023-10-11 11:25 | RAD_ITS ---
STUDY: X-RAY CHEST REASON FOR EXAM: Male, 53 years old. Palpitations TECHNIQUE: Single AP portable view of the chest. COMPARISON: None. FINDINGS: EKG electrodes are seen. The lungs are clear and expanded. There is no demonstrated pleural abnormality. Normal size heart. Normal mediastinum and martha. Normal visualized pulmonary arteries. Normal visualized aortic arch and descending thoracic aorta. There are degenerative changes of the visualized thoracic spine. Normal visualized ribs, clavicles, and shoulders. There is no demonstrated abnormality of the visualized soft tissue structures of the upper abdomen. RAD/Chest 1 View (Portable) IMPRESSION: Normal x-ray examination of the chest. Electronically Signed: Carlos Dominguez MD at 12:11 EDT ,
[2023-10-11 11:32] LABS: Absolute Lymphocyte Count 1.72 X10^3/uL (0.83-4.51); Absolute Neutrophil Count 4.8 X10^3/uL (2.0-7.7); Basophil# 0.05 X10^3/uL; Basophil% 0.7 % (0-1); Eosinophil# 0.16 X10^3/uL; Eosinophils% 2.2 % (0-5); Hemoglobin 16.1 g/dL (13.0-16.5); Lymphocyte # 1.72 X10^3/ul (0.83-4.51); Lymphocyte % 23.8 % (19-41); Mean Corp Hgb Conc 32.2 g/dL (32-36); Mean Corpuscular Hgb 27.7 pg (27.0-32.0); Mean Corpuscular Volume 85.9 fL (80-94); Mean Platelet Vol. 10.2 fl (6.2-12.0); Monocyte# 0.51 X10^3/uL; NRBC Flagged by Analyzer 0 % (0-5); Neutrophil # 4.78 X10^3/uL (2.7-7.7); Platelet Count 299 K/mm3 (150-450); RBC Distribution Width CV 12.6 % (11.6-14.6); RBC Distribution Width SD 39.1 fl (35.1-43.9); Red Blood Count 5.82 M/mm3 (4.6-6.2); White Blood Count 7.2 K/mm3 (4.4-11.0)
[2023-10-11 11:54] LABS: Anion Gap 3 (5-15); BUN 22 mg/dL (7-18); BUN/Creat Ratio 16.5 RATIO (10-20); Calcium,Total 9.1 mg/dL (8.5-10.1); Chloride 109 mmol/L (98-107); Creatinine, Serum 1.33 mg/dL (0.70-1.30); EST Glomerular Filtration Rate 60 mL/min (>60); Est Glom Filt Rate - Afr Amer 72 mL/min (>60); Glucose 100 mg/dL (74-106); Magnesium 2.3 mg/dL (1.6-2.6); Potassium 3.7 mmol/L (3.5-5.1); Sodium Level 139 mmol/L (136-145); Thyroid Stim Hormone (TSH) 2.45 uIU/mL (0.358-3.74); Troponin-I HS 8 pg/mL (3.0-78.0)
[2023-10-11 12:00] VITALS: BP 149/89; PULSE 80; RESP 16; O2SAT 96
[2023-10-11 12:36] VITALS: BP 152/78; PULSE 80; RESP 14; TEMP 36.8; O2SAT 100
== END 2023-10-11 12:37 | disposition home or self-care (01) ==
PROVIDERS: Emergency Provider Emergency Medicine; Visit Provider Emergency Medicine
DX: R00.2 Palpitations (principal); I49.3 Ventricular premature depolarization; Z90.49 Acquired absence of other specified parts of digestive tract
CPT/HCPCS: 71045; 80048; 83735; 84443; 84484; 85025; 93005; 99284

== ENCOUNTER 2023-12-19 11:53 | Outpatient (CLI) | payer OTHER, SELFPAY ==
--- NOTE | 2023-12-19 12:02 | ECHOCS_ITS ---
Reason For Study: PALPITATIONS Procedure This was a 2D Doppler, Color Flow transthoracic echocardiogram. The study was technically difficult. Contrast injection was performed. Exam performed in department. Left Ventricle Normal LV size. Mild concentric left ventricular hypertrophy. Left ventricular systolic function is lower limits of normal. The left ventricular ejection fraction is 50 %. Stage 1 diastolic dysfunction. There is mild global hypokinesis of the left ventricle. Right Ventricle Normal RV size. Normal systolic function. Atria The left atrium is moderately enlarged. The right atrium is mildly enlarged. Mitral Valve Normal mitral valve. Tricuspid Valve Normal tricuspid valve. Aortic Valve Trisinus/trileaflet aortic valve. Pulmonic Valve The pulmonic valve is not well visualized. Great Vessels Normal aortic root. The pulmonary artery is normal size. Inferior vena cava collapse with respiration. Pericardium/Pleural No pericardial effusion. Medication 22 gauge I.V. with prn adaptor inserted into right arm. Diluted definity 2.5ml given slow IV push to enhance endocardial definition. MMode/2D Measurements & Calculations LVIDd: 5.7 cm IVSd: 1.3 cm LVOT diam: 2.4 cm LVIDs: 4.0 cm LVPWd: 1.3 cm FS: 30.2 % LVOT area: 4.6 cm2 Ao root diam: 4.3 cm LAV(MOD-bp): 79.8 ml LVAd ap4: 54.4 cm2 LAV(MOD-bp) Indexed: 26.0 ml/m2 LVLd ap4: 10.3 cm LAV(MOD-sp2): 72.3 ml EDV(MOD-sp4): 234.6 ml LAV(MOD-sp4): 79.1 ml EDV(sp4-el): 243.8 ml LVAs ap4: 32.8 cm2 LVLs ap4: 8.5 cm ESV(MOD-sp4): 103.2 ml ESV(sp4-el): 106.8 ml EF(MOD-sp4): 56.0 % EF(sp4-el): 56.2 % LVAd ap2: 42.9 cm2 SV(MOD-sp4): 131.4 ml SV(MOD-sp2): 78.7 ml LVLd ap2: 9.8 cm EDV(MOD-sp2): 154.6 ml EDV(sp2-el): 159.8 ml LVAs ap2: 28.1 cm2 LVLs ap2: 8.5 cm ESV(MOD-sp2): 75.9 ml ESV(sp2-el): 79.2 ml EF(MOD-sp2): 50.9 % SV(sp4-el): 137.0 ml LA dimension(2D): 4.2 cm LA A4 area: 25.4 cm2 RA A4 area: 21.3 cm2 TAPSE: 2.0 cm Time Measurements MV dec time: 0.20 sec Doppler Measurements & Calculations MV E max kike: 73.3 cm/sec Lat Peak E' Kike: 14.6 cm/sec Med Peak E' Kike: 9.0 cm/sec MV A max kike: 80.3 cm/sec E/E' lat: 5.0 E/E' med: 8.1 MV E/A: 0.91 Ao V2 max: 145.4 cm/sec LV V1 max: 119.5 cm/sec MV dec slope: 358.8 cm/sec2 Ao max P.5 mmHg LV V1 max P.7 mmHg Ao V2 mean: 107.6 cm/sec LV V1 mean P.0 mmHg Ao mean P.2 mmHg LV V1 mean: 80.6 cm/sec Ao V2 VTI: 31.6 cm LV V1 VTI: 25.1 cm AV (velocity ratio): 0.79 SWAPNA(I,D): 3.7 cm2 SWAPNA(V,D): 3.8 cm2 SV(LVOT): 116.7 ml PA V2 max: 103.0 cm/sec PA max PG (full): 2.1 mmHg ECHO/Echo Complete W/ Contrast Interpretation Summary Normal LV size. Mild concentric left ventricular hypertrophy. The left ventricular ejection fraction is 50 %. Left ventricular systolic function is lower limits of normal. There is mild global hypokinesis of the left ventricle. Stage 1 diastolic dysfunction. Contrast injection was performed. Ordering Physician: Jaspreet Mendez Referring Physician: Jaspreet Mendez MD Performed By: Rahul RDCS, Solange and Student
[2023-12-19 12:56] LABS: Cholesterol 165 mg/dL (200); High Density Lipoprotein 59 mg/dL; Triglycerides 75 mg/dL; Very Low Density Lipoprotein 15 mg/dL (5-40)
--- NOTE | 2023-12-19 16:26 | STRESSREP ---
Stress Test Report Exercise stress test. 53-year-old male with family history of coronary artery disease and palpitations Stress protocol: Resting EKG demonstrates normal sinus rhythm with a rate of 75 bpm resting blood pressure is 162/88 mmHg. The patient exercised according to the regular Wagner protocol for a total duration of 7 minutes attaining a maximum heart rate of 155 bpm which was 93% of maximum predicted heart rate; the maximum workload was 10.4 metabolic equivalents. At rest there were no ST or T wave changes noted to suggest ischemia and at peak exercise upsloping ST changes only were noted which did not meet the criteria for ischemia. Premature ventricular complexes were noted during exercise and recovery with some couplets noted. No clinical angina was noted the test was terminated due to the target heart rate being achieved/fatigue. The peak blood pressure was 184/84 mmHg. Rate-pressure product was 26,500. Conclusion: Conclusion Stress test with no EKG criteria for ischemia at a high workload Good functional aerobic capacity.
== END 2023-12-19 23:59 | disposition home or self-care (01) ==
PROVIDERS: Referring Provider Internal Medicine Cardiovascular Disease; Visit Provider Internal Medicine Cardiovascular Disease
DX: R00.2 Palpitations (principal); I50.30 Unspecified diastolic (congestive) heart failure; Z82.49 Family history of ischemic heart disease and other diseases of the circulatory system; I51.89 Other ill-defined heart diseases; I51.7 Cardiomegaly
CPT/HCPCS: 36415; 80061; 93017; 93306; Q9957; A4216; C8929